=== PATIENT | female | born 1965 | race Caucasian/White ===

== ENCOUNTER 2016-12-31 18:20 | Emergency (ER) | payer SELFPAY ==
[2016-12-31] MEDS ORDERED: ASPIRIN 81 MG CHEW TAB PO ONE (18:36)
--- NOTE | 2016-12-31 18:53 | ED Physician Documentation ---
General Adult - HISTORIAN Historian: patient - HPI Stated Complaint: chest pain Chief Complaint: General Adult Onset: days ago Timing: still present Severity: moderate Further Comments: yes (Pt is a 51 yo female with chest pain, sob, and urinary retention. Chest tightness started 3 days ago and has gotten worse. Urinary retention x 1 day. Pt has not had nausea, but has felt warm and sweaty. Pt has hx Hep C and is taking Harvoni. She has DM and is taking Trulicity.) - ROS CONST: no problems EYES/ENT: none CVS/RESP: chest pain, shortness of breath, cough GI/: problems urinating (retention) MS/SKIN/LYMPH: none - PAST HX Past History: other (DM, Hep C, Bipolar d/o, heavy smoker.) Other History: other (bladder stimulator (removed)) - SOCIAL HX Smoking History: cigarettes (heavy) - FAMILY HX Family History: No - VITAL SIGNS Vital Signs: Vital Signs Temp Pulse Resp BP Pulse Ox 86 18 125/89 97 12/31/16 18:36 12/31/16 18:25 12/31/16 18:25 12/31/16 18:36 - REVIEWED ASSESSMENTS Nursing Assessment Reviewed: Yes Vitals Reviewed: Yes <Brooks Lamas - Last Filed: 12/31/16 18:59> - VITAL SIGNS Vital Signs: Vital Signs Temp Pulse Resp BP Pulse Ox 93 H 18 125/89 98 12/31/16 19:06 12/31/16 18:25 12/31/16 18:25 12/31/16 19:06 <Alejandro Branham - Last Filed: 12/31/16 19:35> - PAST HX Allergies/Adverse Reactions: Allergies Allergy/AdvReac Type Severity Reaction Status Date / Time acetaminophen Allergy Verified 12/31/16 18:46 Cephalosporins Allergy Verified 12/31/16 18:46 codeine Allergy Verified 12/31/16 18:46 erythromycin base Allergy Verified 12/31/16 18:46 haloperidol [From Haldol] Allergy Verified 12/31/16 18:46 haloperidol lactate Allergy Verified 12/31/16 18:46 [From Haldol] meperidine HCl [From Demerol] Allergy Verified 12/31/16 18:46 morphine Allergy Verified 12/31/16 18:46 Penicillins Allergy Verified 12/31/16 18:46 risperidone [From Risperdal] Allergy Verified 12/31/16 18:46 IV contrast Allergy Uncoded 12/31/16 18:46 Home Medications: Ambulatory Orders Medication Instructions Recorded Canagliflozin [Invokana] 300 mg PO QDAY 12/31/16 Dulaglutide [Trulicity] 0.75 mg SQ Q7D 12/31/16 Gabapentin [Neurontin] 600 mg PO TID 12/31/16 Ipratropium/Albuterol Sulfate 3 ml NEB QID 12/31/16 [Duoneb] L.acidoph & Paracasei,B.lactis 12/31/16 [Probiotic] Omeprazole [Prilosec] 20 mg PO QDAY 12/31/16 Progress - Progress Progress: Care transferred to Dr. Leiva at 1900 <Brooks Lamas - Last Filed: 12/31/16 18:59> ED Results Lab/Radiology - Orders Orders: ED Orders Category Date Time Status Continuous EKG monitoring Q30M Care 12/31/16 18:36 Ordered Continuous Pulse Oximetry Q30M Care 12/31/16 18:36 Ordered CHEST 1 VIEW [RAD] Stat Exams 12/31/16 18:36 Ordered CBC/PLATELET/DIFF Routine Lab 12/31/16 18:36 Ordered CMP Routine Lab 12/31/16 18:36 Ordered CREATINE KINASE Routine Lab 12/31/16 18:36 Ordered TROPONIN I (cTnI) Stat Lab 12/31/16 18:36 Ordered Aspirin Med 12/31/16 18:36 Once 324 mg PO NOW ONE Oxygen Daily Oxygen 12/31/16 18:45 Ordered EKG WITH COMPARISON Stat Ther 12/31/16 18:36 Ordered <Brooks Lamas - Last Filed: 12/31/16 18:59> - Lab Results Lab Results: Lab Results 12/31/16 12/31/16 12/31/16 18:45 18:45 18:45 WBC 6.90 K/ul K/ul (4.00-12.00) RBC 4.75 M/ul M/ul (3.90-5.20) Hgb 16.0 g/dL g/dL (12.0-16.0) Hct 46.1 % % (34.5-46.5) MCV 96.9 fl fl (80.0-100.0) MCH 33.7 pg pg (28.0-34.0) MCHC 34.7 g/dL g/dL (30.0-36.0) RDW 12.4 % % (11.3-14.3) Plt Count 158 K/mm3 K/mm3 (130-400) Neut % (Auto) 53.7 % % (39.0-79.0) Lymph % (Auto) 33.3 % % (16.0-50.0) [place] % (Auto) 8.0 % % (0.0-11.0) Eos % (Auto) 2.9 % % (0.0-6.8) Baso % (Auto) 0.8 (0.0-1.5) Neut # (Auto) 3.7 # k/uL # k/uL (1.4-7.7) Lymph # (Auto) 2.3 # k/uL # k/uL (0.6-4.0) [place] # (Auto) 0.6 # k/uL # k/uL (0.0-0.9) Eos # (Auto) 0.2 # k/uL # k/uL (0.0-0.6) Baso # (Auto) 0.1 # k/uL # k/uL (0.0-0.5) Reactive Lymphs % 1.3 % % (0.0-5.0) Reactive Lymphs # 0.1 # k/uL # k/uL (0.0-0.8) Sodium 138 mmol/L mmol/L (136-145) Potassium 3.9 mmol/L mmol/L (3.5-5.0) Chloride 104 mmol/L mmol/L (98-110) Carbon Dioxide 31 mmol/L mmol/L (20-32) BUN 8 mg/dL L mg/dL (10-26) Creatinine 0.7 mg/dL mg/dL (0.4-1.5) Estimated Creat Clear 140 Est GFR ( Amer) > 60 (60 - ) Est GFR (Non-Af Amer) > 60 (60 - ) Glucose 143 mg/dL H mg/dL (70-99) Calcium 10.0 mg/dL mg/dL (8.5-10.5) Total Bilirubin 0.5 mg/dL mg/dL (0.2-1.2) AST 29 U/L U/L (0-41) ALT 37 U/L U/L (0-45) Alkaline Phosphatase 231 U/L H U/L (46-116) Creatine Kinase 48 U/L U/L (0-225) Troponin I < 0.03 ng/mL L ng/mL (0.03-0.06) Total Protein 7.2 g/dL g/dL (6.0-8.5) Albumin 4.0 g/dL g/dL (3.0-5.5) - Radiology Radiology Impressions: CXR no acute process. - Orders Orders: ED Orders Category Date Time Status Continuous EKG monitoring Q30M Care 12/31/16 18:36 Active Continuous Pulse Oximetry Q30M Care 12/31/16 18:36 Active CHEST 1 VIEW [RAD] Stat Exams 12/31/16 18:36 Ordered CBC/PLATELET/DIFF Routine Lab 12/31/16 18:45 Completed CMP Routine Lab 12/31/16 18:45 Completed CREATINE KINASE Routine Lab 12/31/16 18:45 Completed TROPONIN I (cTnI) Stat Lab 12/31/16 18:45 Completed Aspirin Med 12/31/16 18:36 Discontinued 324 mg PO NOW ONE Oxygen Daily Oxygen 12/31/16 18:45 Ordered EKG WITH COMPARISON Stat Ther 12/31/16 18:36 Ordered <Alejandro Branham - Last Filed: 12/31/16 19:35> General Adult Physical Exam - PHYSICAL EXAM GENERAL APPEARANCE: mild distress EENT: pharynx normal NECK: normal inspection, supple RESPIRATORY: wheezes, rales, rhonchi CVS: reg rate & rhythm, heart sounds normal ABDOMEN: soft, no organomegaly, normal bowel sounds BACK: normal inspection SKIN: warm/dry, normal color EXTREMITIES: non-tender, normal range of motion NEURO: oriented X3, motor nml, sensation nml <Brooks Lamas - Last Filed: 12/31/16 18:59> Discharge <Brooks Lamas - Last Filed: 12/31/16 18:59> Decision to Admit: NO Date of Decison to Admit: 12/31/16 Decision Time: 19:35 <Alejandro Branham - Last Filed: 12/31/16 19:35> Clincal Impression: Hep C w/o coma, chronic, Pleurisy Reactive airway disease Qualifiers: Asthma severity: unspecified severity Asthma complication type: uncomplicated Qualified Code(s): J45.909 - Unspecified asthma, uncomplicated Emphysema of lung Qualifiers: Emphysema type: unspecified Qualified Code(s): J43.9 - Emphysema, unspecified Referrals: Danielle Barnett FNP [Primary Care Provider] - 2 Days Home Medications: Ambulatory Orders Canagliflozin [Invokana] 300 mg PO QDAY 12/31/16 Dulaglutide [Trulicity] 0.75 mg SQ Q7D 12/31/16 Gabapentin [Neurontin] 600 mg PO TID 12/31/16 Ipratropium/Albuterol Sulfate [Duoneb] 3 ml NEB QID 12/31/16 L.acidoph & Paracasei,B.lactis [Probiotic] 12/31/16 Omeprazole [Prilosec] 20 mg PO QDAY 12/31/16 Condition: Stable Disposition: 01 HOME, SELF-CARE
[2016-12-31 19:03] LABS: BASOPHILS % 0.8 (0.0-1.5); EOSINOPHILS % 2.9 % (0.0-6.8); MEAN CORPUSCULAR HEMOGLOBIN 33.7 pg (28.0-34.0); MEAN CORPUSCULAR VOLUME 96.9 fl (80.0-100.0); NEUTROPHILS # 3.7 # k/uL (1.4-7.7)
[2016-12-31 19:16] LABS: eGFR (African) > 60; eGFR (Non-African) > 60
[2016-12-31] MEDS ORDERED: methylPREDNISolone SOD SUCC 125 MG/2 ML VIAL IVP ONE (19:33)
[2016-12-31] MEDS ORDERED: methylPREDNISolone SOD SUCC 125 MG/2 ML VIAL IM ONE (19:57)
[2016-12-31 20:49] VITALS: BP 119/72
--- NOTE | 2017-01-01 07:02 | Diagnostic Imaging Report ---
YARON GONSALVES - SAUMYA [facility] [id number] [facility] [address] [place] [id number] Report Submission Date: Dec 31, 2016 7:17:33 PM CDT Patient Study Name: SEBASTIAN GARCIA Date: Dec 31, 2016 7:02:34 PM CDT Modality Type: CR Gender: F Description: CHEST : 61 Institution: [facility] Physician: YARON GONSALVES - SAUMYA Examination: Portable chest History: Chest discomfort Comparison exam: None available Findings: Single view of the chest demonstrates a normal cardiac and mediastinal silhouette. Lung gordon without focal infiltrate. No effusion. Osseous structures are appropriate for age. Impression: No acute pulmonary process. Electronically signed on Dec 31, 2016 7:17:33 PM CDT by: Grant BLACK
== END 2016-12-31 20:05 | disposition home or self-care (01) ==
LOC: ED 18:20
DX: B18.2 Chronic viral hepatitis C (principal); R09.1 Pleurisy; J45.909 Unspecified asthma, uncomplicated; J43.9 Emphysema, unspecified
CPT/HCPCS: 71010; 80053; 82550; 84484; 85025; J2930; 96372; 99283; S1016